=== PATIENT | male | born 1985 | race Caucasian/White ===

== ENCOUNTER 2017-03-03 15:46 | Inpatient (IN) | payer MEDICAID ==
[~2017-03-03] VITALS: Ht 177.8 cm; Wt 84.1 kg
[~2017-03-03 15:46] MED LIST: ETOMIDATE 2 MG/ML 10 ML VIAL IVP ONE; VECURONIUM BROMIDE 10 MG/VIAL IVP ONE
[2017-03-03] MEDS ORDERED: ACETAMINOPHEN 1000 MG/ISO-OSM 100 ML IV ONE (16:02)
[2017-03-03] MEDS ORDERED: PROPOFOL 1000 MG/ISO-OSM 100 ML IV PRN (16:17)
[2017-03-03 16:34] LABS: BASOPHILS % (AUTO) 0.5 % (0.0-2.0); EOSINOPHILS % (AUTO) 1.7 % (1.0-6.0); HEMATOCRIT 44.8 % (41-53); HEMOGLOBIN 14.7 g/dL (13.5-17.5); LYMPHOCYTES # (AUTO) 4.8 K/uL (1.0-4.8); LYMPHOCYTES % (AUTO) 31.9 % (22.0-44.0); MEAN CORPUSCULAR HEMOGLOBIN 29.7 pg (26.0-34.0); MEAN CORPUSCULAR HGB CONC 32.8 G/dL (31.0-37.0); MEAN CORPUSCULAR VOLUME 91 fL (80-100); MONOCYTES # (AUTO) 0.8 K/uL (0.1-1.0); MONOCYTES % (AUTO) 5.2 % (2.0-9.0); NEUTROPHILS # (AUTO) 9.1 K/uL (1.8-7.7); NEUTROPHILS % (AUTO) 60.7 % (40.0-70.0); PLATELET COUNT (AUTO) 250 K/uL (150-450); RED BLOOD CELL COUNT(AUTO) 4.95 MIL/uL (4.50-5.90); RED CELL DISTRIBUTION WIDTH 13.5 % (11.5-14.5)
[2017-03-03 16:46] LABS: APPEARANCE,URINE CLOUDY (CLEAR); GLUCOSE, URINE (UA) NEGATIVE (NEGATIVE); KETONES,URINE NEGATIVE (NEGATIVE); LEUKOCYTE ESTERASE ,URINE NEGATIVE (NEGATIVE); OCCULT BLOOD,URINE LARGE (NEGATIVE); PH,URINE 6.5 (5.0-8.0); PROTEIN,URINE SEE CONFIRM (NEGATIVE)
[2017-03-03 16:47] LABS: ANION GAP 26 mmol/L (8-16); CARBON DIOXIDE 14 mmol/L (22-29); CHLORIDE 103 mmol/L (98-107); CREATININE 1.98 mg/dL (0.60-1.30); GLOMERULAR FILTR. RATE CALC 30 mL/min (>60); POTASSIUM 3.1 mmol/L (3.5-5.1); SODIUM SERUM 143 mmol/L (136-145); UREA NITROGEN, BLOOD 14 mg/dL (7-18)
[2017-03-03 16:51] LABS: ALANINE AMINOTRANSFERASE 200 U/L (12-78); ALBUMIN 3.2 g/dL (3.4-5.0); ASPARTATE AMINOTRANSFERASE 151 U/L (15-37); BILIRUBIN,TOTAL 0.4 mg/dL (0.1-1.0)
[2017-03-03 16:52] LABS: ACETAMINOPHEN < 2 mcg/mL (10-30); SALICYLATE < 2.8 mg/dL (2.8-20.0)
[2017-03-03 16:54] LABS: B-TYPE NATRIURETIC PEPTIDE < 5 pg/mL (0-100)
[2017-03-03 17:03] LABS: AMMONIA 113 umol/L (11-32)
[2017-03-03 17:03] LABS: ADD UA MICROSCOPIC YES
[2017-03-03 17:04] LABS: TROPONIN I < 0.02 ng/mL (0.00-0.05)
[2017-03-03 17:06] LABS: SULFOSALICYLIC ACID,URINE 2+ (Negative)
[2017-03-03 17:07] LABS: WBC,URINE 0-2 /HPF (0-5)
[2017-03-03] MEDS ORDERED: AZITHROMYCIN 500 MG/NS 250 ML IV ONE (17:45)
[2017-03-03] MEDS ORDERED: PIPERACILLIN/TAZO 3.375 GM/D5W 50 ML IV ONE (17:45)
[2017-03-03] MEDS ORDERED: MIDAZOLAM HCL 100 MG in DEXTROSE 5%-WATER 180 ML IV PRN (17:55)
[2017-03-03 17:57] LABS: ABG A-A DIFF O2 543.8 mmHg (10-20.0); ABG BASE EXCESS -12.3 mmol/L (-2.0-3.0); ABG HCO3 15.6 mmol/L (22.0-26.0); ABG PCO2 38 mmHg (35-45); ABG PH 7.222 (7.35-7.450); TEMPERATURE, FAHRENHEIT, BG 97.5 FAHREN (96.0-98.6)
[2017-03-03 17:58] LABS: ALLEN TEST, BLOOD GAS POS
[2017-03-03] MEDS ORDERED: POTASSIUM CHL 20 MEQ/0.9% NS 1,000 ML IV ONE (18:00)
[2017-03-03] MEDS ORDERED: SODIUM CHLORIDE 0.9% 1,000 ML IV ONE ×3 (18:00→19:00)
[2017-03-03] MEDS ORDERED: LACTULOSE 20 GM/30 ML SOLUTION UDCUP PO ONE (18:45)
[2017-03-03 18:56] LABS: LACTIC ACID 5.4 mmol/L (0.4-2.0)
[2017-03-03] MEDS ORDERED: NOREPINEPHRINE 4 MG/D5%-WATER 250 ML IV PRN (19:00)
[2017-03-03 19:51] LABS: REFLEX LACTIC ACID? YES YES
[2017-03-03 20:30] VITALS: BP 128/63
[2017-03-03] MEDS ORDERED: ACETAMINOPHEN 325 MG TABLET PO PRN (21:45)
[2017-03-03] MEDS ORDERED: ONDANSETRON HCL 4 MG/2 ML VIAL IVP PRN (21:45)
[2017-03-03] MEDS ORDERED: 0.9% SODIUM CHLORIDE 10 ML SYRINGE IVP PRN (21:45)
[2017-03-03 22:00] VITALS: BP 119/83
[2017-03-03] MEDS: PROPOFOL 1000 MG/ISO-OSM 100 ML IV PRN (22:18)
[2017-03-04] VITALS (14 sets, daily range): BP systolic 94–125; BP diastolic 61–85
[2017-03-04] MEDS: PROPOFOL 1000 MG/ISO-OSM 100 ML IV PRN ×7 (00:30→23:29)
[2017-03-04] MEDS ORDERED: ACETAMINOPHEN 325 MG TABLET PO PRN ×2 (04:45→15:00)
[2017-03-04 05:29] LABS: CALCIUM, TOTAL 7.8 mg/dL (8.8-10.5); CREATININE 1.43 mg/dL (0.60-1.30)
[2017-03-04 05:50] LABS: HEMATOCRIT 46.8 % (41-53); HEMOGLOBIN 15.4 g/dL (13.5-17.5); MEAN CORPUSCULAR HEMOGLOBIN 29.8 pg (26.0-34.0); MEAN CORPUSCULAR VOLUME 90 fL (80-100); PLATELET COUNT (AUTO) 186 K/uL (150-450); RED BLOOD CELL COUNT(AUTO) 5.17 MIL/uL (4.50-5.90); RED CELL DISTRIBUTION WIDTH 13.7 % (11.5-14.5); WHITE BLOOD COUNT (AUTO) 17.3 K/uL (4.5-11.0)
[2017-03-04 09:57] LABS: BAND NEUTROPHILS % (MANUAL) 13 % (1-5); LYMPHOCYTES % (MANUAL) 6 % (22-44); TOTAL CELLS COUNTED 100
[2017-03-04] MEDS ORDERED: ONDANSETRON HCL 4 MG/2 ML VIAL IVP PRN (15:00)
[2017-03-04] MEDS ORDERED: BISACODYL 10 MG RECTAL RECTAL SUPPOSITORY PR PRN (15:00)
[2017-03-04] MEDS ORDERED: IPRATROPIUM BROMIDE 0.5 MG/2.5 ML NEB SOLUTION NEB PRN (15:00)
[2017-03-04] MEDS ORDERED: ZOLPIDEM TARTRATE 5 MG TABLET PO PRN (15:00)
[2017-03-04] MEDS ORDERED: MAGNESIUM HYDROXIDE SUSPENSION 30 ML UDCUP PO PRN (15:00)
[2017-03-04] MEDS ORDERED: ALBUTEROL SULFATE 2.5 MG/0.5 ML NEB SOLUTION NEB PRN (15:00)
[2017-03-04] MEDS ORDERED: DEXTROSE 5%-0.45% SODIUM CHL 1,000 ML IV ONE (15:15)
[2017-03-04 16:00] LABS: ALBUMIN 3.1 g/dL (3.4-5.0); BILIRUBIN,TOTAL 0.5 mg/dL (0.1-1.0)
[2017-03-04 16:02] LABS: BILIRUBIN,DIRECT 0.1 mg/dL (0.00-0.20)
[2017-03-04] MEDS: PIPERACILLIN/TAZO 3.375 GM/D5W 50 ML IV SCH ×2 (16:16→21:36)
[2017-03-04] MEDS: MIDAZOLAM HCL 100 MG in DEXTROSE 5%-WATER 180 ML IV PRN (16:17)
[2017-03-04] MEDS: HEPARIN SODIUM,PORCINE 5,000 UNITS/ML VIAL SQ SCH (16:28)
[2017-03-04] MEDS: VANCOMYCIN HCL 1.25 GM in DEXTROSE 5%-WATER 250 ML IV SCH (17:32)
[2017-03-04] MEDS ORDERED: VANCOMYCIN HCL 1 GM/D5% WATER 200 ML IV SCH (18:00)
[2017-03-04] MEDS: HYDROCODONE/ACETAMINOPHEN 5-325 MG TABLET PO PRN (22:17)
[2017-03-05] VITALS (10 sets, daily range): BP systolic 99–116; BP diastolic 58–86
[2017-03-05] MEDS: HEPARIN SODIUM,PORCINE 5,000 UNITS/ML VIAL SQ SCH ×4 (00:43→23:36)
[2017-03-05] MEDS: PROPOFOL 1000 MG/ISO-OSM 100 ML IV PRN ×7 (03:09→22:08)
[2017-03-05] MEDS: PIPERACILLIN/TAZO 3.375 GM/D5W 50 ML IV SCH ×4 (03:56→22:07)
[2017-03-05] MEDS: VANCOMYCIN HCL 1.25 GM in DEXTROSE 5%-WATER 250 ML IV SCH ×2 (05:08→18:40)
[2017-03-05] MEDS: MIDAZOLAM HCL 100 MG in DEXTROSE 5%-WATER 180 ML IV PRN ×2 (05:10→18:40)
[2017-03-05 06:03] LABS: ALANINE AMINOTRANSFERASE 123 U/L (12-78); ALBUMIN 2.5 g/dL (3.4-5.0); ANION GAP 12 mmol/L (8-16); ASPARTATE AMINOTRANSFERASE 52 U/L (15-37); BILIRUBIN,TOTAL 0.5 mg/dL (0.1-1.0); CALCIUM, TOTAL 7.7 mg/dL (8.8-10.5); CARBON DIOXIDE 22 mmol/L (22-29); CHLORIDE 109 mmol/L (98-107); CREATININE 1.33 mg/dL (0.60-1.30); GLOMERULAR FILTR. RATE CALC > 60 mL/min (>60); SODIUM SERUM 143 mmol/L (136-145); TOTAL PROTEIN, SERUM 6.3 g/dL (6.4-8.2); UREA NITROGEN, BLOOD 14 mg/dL (7-18)
[2017-03-05 06:17] LABS: BASOPHILS % (AUTO) 0.5 % (0.0-2.0); EOSINOPHILS % (AUTO) 5.2 % (1.0-6.0); HEMATOCRIT 41.3 % (41-53); HEMOGLOBIN 13.4 g/dL (13.5-17.5); LYMPHOCYTES # (AUTO) 2.1 K/uL (1.0-4.8); LYMPHOCYTES % (AUTO) 22.4 % (22.0-44.0); MEAN CORPUSCULAR HEMOGLOBIN 29.2 pg (26.0-34.0); MEAN CORPUSCULAR HGB CONC 32.4 G/dL (31.0-37.0); MEAN CORPUSCULAR VOLUME 90 fL (80-100); MONOCYTES # (AUTO) 0.6 K/uL (0.1-1.0); MONOCYTES % (AUTO) 6.6 % (2.0-9.0); NEUTROPHILS # (AUTO) 6.2 K/uL (1.8-7.7); NEUTROPHILS % (AUTO) 65.3 % (40.0-70.0); PLATELET COUNT (AUTO) 158 K/uL (150-450); RED BLOOD CELL COUNT(AUTO) 4.58 MIL/uL (4.50-5.90); RED CELL DISTRIBUTION WIDTH 14.2 % (11.5-14.5); WHITE BLOOD COUNT (AUTO) 9.4 K/uL (4.5-11.0)
[2017-03-05 08:54] LABS: TEMPERATURE, FAHRENHEIT, BG 98.6 FAHREN (96.0-98.6)
[2017-03-05 08:56] LABS: ABG A-A DIFF O2 87.5 mmHg (10-20.0); ABG BASE EXCESS -6.6 mmol/L (-2.0-3.0); ABG HCO3 20.2 mmol/L (22.0-26.0); ABG OXYHEMOGLOBIN 97.2 % (94.0-100.0); ABG PCO2 30 mmHg (35-45)
[2017-03-05 08:57] LABS: ALLEN TEST, BLOOD GAS Positive
[2017-03-05] MEDS: PANTOPRAZOLE SODIUM 40 MG/VIAL IVP SCH (09:25)
[2017-03-05] MEDS: HYDROCODONE/ACETAMINOPHEN 5-325 MG TABLET PO PRN (09:26)
[2017-03-05] MEDS ORDERED: LORazepam 2 MG/ML VIAL ONE (09:47)
[2017-03-05] MEDS ORDERED: SODIUM CHLORIDE 0.9% 250 ML IV ONE (10:05)
[2017-03-05] MEDS ORDERED: LORazepam 2 MG/ML VIAL IVP ONE (10:15)
[2017-03-05] MEDS: ChlordiazePOXIDE HCL 25 MG CAPSULE PO SCH ×3 (12:00→23:36)
[2017-03-06] VITALS: BP 105/75
[2017-03-06] MEDS: PROPOFOL 1000 MG/ISO-OSM 100 ML IV PRN ×7 (00:51→21:25)
[2017-03-06] MEDS: PIPERACILLIN/TAZO 3.375 GM/D5W 50 ML IV SCH ×4 (03:36→21:25)
[2017-03-06 04:00] VITALS: BP 109/75
[2017-03-06] MEDS: ChlordiazePOXIDE HCL 25 MG CAPSULE PO SCH ×4 (05:24→23:29)
[2017-03-06] MEDS: VANCOMYCIN HCL 1.25 GM in DEXTROSE 5%-WATER 250 ML IV SCH ×3 (05:24→21:25)
[2017-03-06 06:20] LABS: BASOPHILS % (AUTO) 0.5 % (0.0-2.0); EOSINOPHILS % (AUTO) 6.3 % (1.0-6.0); HEMATOCRIT 39.5 % (41-53); LYMPHOCYTES # (AUTO) 1.7 K/uL (1.0-4.8); LYMPHOCYTES % (AUTO) 23.6 % (22.0-44.0); MEAN CORPUSCULAR HEMOGLOBIN 29.7 pg (26.0-34.0); MEAN CORPUSCULAR HGB CONC 32.8 G/dL (31.0-37.0); MEAN CORPUSCULAR VOLUME 90 fL (80-100); MONOCYTES # (AUTO) 0.5 K/uL (0.1-1.0); MONOCYTES % (AUTO) 6.3 % (2.0-9.0); NEUTROPHILS # (AUTO) 4.6 K/uL (1.8-7.7); NEUTROPHILS % (AUTO) 63.3 % (40.0-70.0); PLATELET COUNT (AUTO) 182 K/uL (150-450); RED BLOOD CELL COUNT(AUTO) 4.36 MIL/uL (4.50-5.90); RED CELL DISTRIBUTION WIDTH 14.5 % (11.5-14.5); WHITE BLOOD COUNT (AUTO) 7.3 K/uL (4.5-11.0)
[2017-03-06 06:56] LABS: ALANINE AMINOTRANSFERASE 86 U/L (12-78); ALBUMIN 2.4 g/dL (3.4-5.0); ANION GAP 3 mmol/L (8-16); ASPARTATE AMINOTRANSFERASE 40 U/L (15-37); BILIRUBIN,TOTAL 0.5 mg/dL (0.1-1.0); CALCIUM, TOTAL 7.8 mg/dL (8.8-10.5); CARBON DIOXIDE 24 mmol/L (22-29); CHLORIDE 106 mmol/L (98-107); CREATININE 1.05 mg/dL (0.60-1.30); GLOMERULAR FILTR. RATE CALC > 60 mL/min (>60); SODIUM SERUM 133 mmol/L (136-145); TOTAL PROTEIN, SERUM 6.1 g/dL (6.4-8.2); UREA NITROGEN, BLOOD 7 mg/dL (7-18)
[2017-03-06 08:00] VITALS: BP 112/74
[2017-03-06] MEDS: PANTOPRAZOLE SODIUM 40 MG/VIAL IVP SCH (08:26)
[2017-03-06] MEDS: HEPARIN SODIUM,PORCINE 5,000 UNITS/ML VIAL SQ SCH ×3 (08:27→23:29)
[2017-03-06 11:13] LABS: HEPATITIS Bs ANTIGEN SCREEN P Negative (Negative); HEPATITIS C AB SCREEN <0.1 s/co ratio (0.0-0.9)
[2017-03-06] MEDS: MIDAZOLAM HCL 100 MG in DEXTROSE 5%-WATER 180 ML IV PRN ×2 (11:37→23:32)
[2017-03-06 12:00] VITALS: BP 104/67
[2017-03-06 16:00] VITALS: BP 105/70
[2017-03-06 20:00] VITALS: BP 116/81
[2017-03-06] MEDS ORDERED: POTASSIUM CHLORIDE 20 MEQ ER TABLET PO PRN ×2 (21:00)
[2017-03-06] MEDS ORDERED: POTASSIUM CHL 10 MEQ/WATER 50 ML IV PRN (21:00)
[2017-03-06] MEDS ORDERED: POTASSIUM CHLORIDE 10% 40 MEQ/30 ML LIQUID UDCUP GT PRN (21:00)
[2017-03-06] MEDS: POTASSIUM CHLORIDE 10% 40 MEQ/30 ML LIQUID UDCUP GT PRN (21:24)
[2017-03-06] MEDS ORDERED: PANTOPRAZOLE SODIUM 40 MG/VIAL IVP ONE (23:45)
[2017-03-07] VITALS (8 sets, daily range): BP systolic 99–131; BP diastolic 58–78
[2017-03-07] MEDS: PROPOFOL 1000 MG/ISO-OSM 100 ML IV PRN ×6 (01:13→22:17)
[2017-03-07] MEDS: PIPERACILLIN/TAZO 3.375 GM/D5W 50 ML IV SCH ×4 (03:28→22:25)
[2017-03-07] MEDS: POTASSIUM CHLORIDE 10% 40 MEQ/30 ML LIQUID UDCUP GT PRN (03:28)
[2017-03-07 05:24] LABS: BASOPHILS # (AUTO) 0.02 K/uL (0.00-0.20); BASOPHILS % (AUTO) 0.2 % (0.0-2.0); EOSINOPHILS % (AUTO) 5.77 % (1.0-6.0); HEMATOCRIT 38.6 % (41-53); LYMPHOCYTES # (AUTO) 1.2 K/uL (1.0-4.8); LYMPHOCYTES % (AUTO) 16.7 % (22.0-44.0); MEAN CORPUSCULAR HEMOGLOBIN 30.2 pg (26.0-34.0); MEAN CORPUSCULAR HGB CONC 33.5 G/dL (31.0-37.0); MEAN CORPUSCULAR VOLUME 90 fL (80-100); MONOCYTES # (AUTO) 0.5 K/uL (0.1-1.0); MONOCYTES % (AUTO) 7.4 % (2.0-9.0); NEUTROPHILS # (AUTO) 4.9 K/uL (1.8-7.7); NEUTROPHILS % (AUTO) 69.9 % (40.0-70.0); PLATELET COUNT (AUTO) 213 K/uL (150-450); RED BLOOD CELL COUNT(AUTO) 4.29 MIL/uL (4.50-5.90); RED CELL DISTRIBUTION WIDTH 14.2 % (11.5-14.5); WHITE BLOOD COUNT (AUTO) 6.9 K/uL (4.5-11.0)
[2017-03-07] MEDS: ChlordiazePOXIDE HCL 25 MG CAPSULE PO SCH ×4 (05:48→23:48)
[2017-03-07] MEDS: VANCOMYCIN HCL 1.25 GM in DEXTROSE 5%-WATER 250 ML IV SCH ×3 (05:48→22:25)
[2017-03-07 05:49] LABS: ALANINE AMINOTRANSFERASE 79 U/L (12-78); ALBUMIN 2.5 g/dL (3.4-5.0); ANION GAP 10 mmol/L (8-16); ASPARTATE AMINOTRANSFERASE 44 U/L (15-37); BILIRUBIN,TOTAL 0.5 mg/dL (0.1-1.0); CALCIUM, TOTAL 7.9 mg/dL (8.8-10.5); CARBON DIOXIDE 24 mmol/L (22-29); CHLORIDE 109 mmol/L (98-107); CREATININE 0.89 mg/dL (0.60-1.30); GLOMERULAR FILTR. RATE CALC > 60 mL/min (>60); POTASSIUM 3.9 mmol/L (3.5-5.1); SODIUM SERUM 143 mmol/L (136-145); TOTAL PROTEIN, SERUM 6.4 g/dL (6.4-8.2); UREA NITROGEN, BLOOD 6 mg/dL (7-18)
[2017-03-07] MEDS: PANTOPRAZOLE SODIUM 40 MG/VIAL IVP SCH (09:19)
[2017-03-07] MEDS: HEPARIN SODIUM,PORCINE 5,000 UNITS/ML VIAL SQ SCH ×3 (09:19→23:48)
[2017-03-07] MEDS: MIDAZOLAM HCL 100 MG in DEXTROSE 5%-WATER 180 ML IV PRN (10:29)
[2017-03-07] MEDS ORDERED: LORazepam 2 MG/ML VIAL IM PRN (11:00)
[2017-03-07] MEDS: MORPHINE SULFATE 2 MG/ML SYRINGE IVP PRN (13:20)
[2017-03-07] MEDS: LORazepam 2 MG/ML VIAL IVP PRN (13:20)
[2017-03-07] MEDS ORDERED: 0.9% SODIUM CHLORIDE 10 ML SYRINGE IVP PRN (15:15)
[2017-03-08] VITALS (9 sets, daily range): BP systolic 99–121; BP diastolic 55–84
[2017-03-08] MEDS: PROPOFOL 1000 MG/ISO-OSM 100 ML IV PRN ×6 (00:43→22:31)
[2017-03-08] MEDS ORDERED: SODIUM CHLORIDE 0.9% 250 ML IV ONE ×2 (01:48→16:18)
[2017-03-08] MEDS: MIDAZOLAM HCL 100 MG in DEXTROSE 5%-WATER 180 ML IV PRN ×2 (02:02→20:21)
[2017-03-08] MEDS: LORazepam 2 MG/ML VIAL IVP PRN ×3 (02:32→16:00)
[2017-03-08] MEDS: PIPERACILLIN/TAZO 3.375 GM/D5W 50 ML IV SCH ×4 (03:52→22:30)
[2017-03-08] MEDS: VANCOMYCIN HCL 1.25 GM in DEXTROSE 5%-WATER 250 ML IV SCH ×3 (05:27→22:30)
[2017-03-08] MEDS ORDERED: SODIUM CHLORIDE 0.9% 500 ML IV ONE (05:32)
[2017-03-08 05:45] LABS: BASOPHILS # (AUTO) 0.03 K/uL (0.00-0.20); BASOPHILS % (AUTO) 0.5 % (0.0-2.0); EOSINOPHILS # (AUTO) 0.46 K/uL (0.00-0.70); EOSINOPHILS % (AUTO) 6.96 % (1.0-6.0); HEMATOCRIT 36.5 % (41-53); HEMOGLOBIN 12.5 g/dL (13.5-17.5); LYMPHOCYTES # (AUTO) 1.3 K/uL (1.0-4.8); MEAN CORPUSCULAR HEMOGLOBIN 30.4 pg (26.0-34.0); MEAN CORPUSCULAR HGB CONC 34.4 G/dL (31.0-37.0); MEAN CORPUSCULAR VOLUME 88 fL (80-100); MONOCYTES # (AUTO) 0.6 K/uL (0.1-1.0); MONOCYTES % (AUTO) 8.9 % (2.0-9.0); NEUTROPHILS # (AUTO) 4.3 K/uL (1.8-7.7); NEUTROPHILS % (AUTO) 64.7 % (40.0-70.0); PLATELET COUNT (AUTO) 233 K/uL (150-450); RED BLOOD CELL COUNT(AUTO) 4.12 MIL/uL (4.50-5.90); RED CELL DISTRIBUTION WIDTH 14.2 % (11.5-14.5); WHITE BLOOD COUNT (AUTO) 6.7 K/uL (4.5-11.0)
[2017-03-08 05:46] LABS: ALANINE AMINOTRANSFERASE 68 U/L (12-78); ALBUMIN 2.4 g/dL (3.4-5.0); ANION GAP 9 mmol/L (8-16); ASPARTATE AMINOTRANSFERASE 44 U/L (15-37); BILIRUBIN,TOTAL 0.4 mg/dL (0.1-1.0); CALCIUM, TOTAL 7.9 mg/dL (8.8-10.5); CARBON DIOXIDE 27 mmol/L (22-29); CHLORIDE 109 mmol/L (98-107); CREATININE 0.88 mg/dL (0.60-1.30); GLOMERULAR FILTR. RATE CALC > 60 mL/min (>60); POTASSIUM 3.3 mmol/L (3.5-5.1); SODIUM SERUM 145 mmol/L (136-145); TOTAL PROTEIN, SERUM 6.3 g/dL (6.4-8.2); UREA NITROGEN, BLOOD 6 mg/dL (7-18)
[2017-03-08] MEDS: ChlordiazePOXIDE HCL 25 MG CAPSULE PO SCH ×3 (05:51→18:11)
[2017-03-08] MEDS: PANTOPRAZOLE SODIUM 40 MG/VIAL IVP SCH (08:09)
[2017-03-08] MEDS: HEPARIN SODIUM,PORCINE 5,000 UNITS/ML VIAL SQ SCH ×2 (08:09→16:12)
[2017-03-08] MEDS: MORPHINE SULFATE 2 MG/ML SYRINGE IVP PRN ×2 (08:09→16:00)
[2017-03-08] MEDS: POTASSIUM CHL 10 MEQ/WATER 50 ML IV PRN ×3 (10:21→12:33)
[2017-03-09] VITALS (10 sets, daily range): BP systolic 106–122; BP diastolic 63–84
[2017-03-09] MEDS ORDERED: SODIUM CHLORIDE 0.9% 250 ML IV ONE (00:51)
[2017-03-09] MEDS: ChlordiazePOXIDE HCL 25 MG CAPSULE PO SCH ×4 (00:57→17:26)
[2017-03-09] MEDS: HEPARIN SODIUM,PORCINE 5,000 UNITS/ML VIAL SQ SCH ×3 (00:57→15:10)
[2017-03-09] MEDS: PIPERACILLIN/TAZO 3.375 GM/D5W 50 ML IV SCH ×4 (03:01→22:03)
[2017-03-09] MEDS: PROPOFOL 1000 MG/ISO-OSM 100 ML IV PRN ×5 (03:02→21:06)
[2017-03-09 05:36] LABS: BASOPHILS % (AUTO) 0.3 % (0.0-2.0); EOSINOPHILS % (AUTO) 5.5 % (1.0-6.0); HEMATOCRIT 38.2 % (41-53); HEMOGLOBIN 12.5 g/dL (13.5-17.5); LYMPHOCYTES # (AUTO) 1.5 K/uL (1.0-4.8); LYMPHOCYTES % (AUTO) 16.8 % (22.0-44.0); MEAN CORPUSCULAR HEMOGLOBIN 29.6 pg (26.0-34.0); MEAN CORPUSCULAR HGB CONC 32.8 G/dL (31.0-37.0); MEAN CORPUSCULAR VOLUME 90 fL (80-100); MONOCYTES # (AUTO) 0.8 K/uL (0.1-1.0); MONOCYTES % (AUTO) 9.3 % (2.0-9.0); NEUTROPHILS % (AUTO) 68.1 % (40.0-70.0); PLATELET COUNT (AUTO) 272 K/uL (150-450); RED BLOOD CELL COUNT(AUTO) 4.24 MIL/uL (4.50-5.90); RED CELL DISTRIBUTION WIDTH 14.3 % (11.5-14.5); WHITE BLOOD COUNT (AUTO) 8.8 K/uL (4.5-11.0)
[2017-03-09 05:49] LABS: ALANINE AMINOTRANSFERASE 69 U/L (12-78); ALBUMIN 2.5 g/dL (3.4-5.0); ANION GAP 9 mmol/L (8-16); ASPARTATE AMINOTRANSFERASE 44 U/L (15-37); BILIRUBIN,TOTAL 0.4 mg/dL (0.1-1.0); CALCIUM, TOTAL 8.1 mg/dL (8.8-10.5); CARBON DIOXIDE 27 mmol/L (22-29); CHLORIDE 109 mmol/L (98-107); CREATININE 0.98 mg/dL (0.60-1.30); GLOMERULAR FILTR. RATE CALC > 60 mL/min (>60); POTASSIUM 3.1 mmol/L (3.5-5.1); SODIUM SERUM 145 mmol/L (136-145); TOTAL PROTEIN, SERUM 6.4 g/dL (6.4-8.2); UREA NITROGEN, BLOOD 6 mg/dL (7-18)
[2017-03-09] MEDS: VANCOMYCIN HCL 1.25 GM in DEXTROSE 5%-WATER 250 ML IV SCH ×3 (05:54→22:03)
[2017-03-09 07:39] LABS: PHOSPHORUS 3.9 mg/dL (2.5-4.9)
[2017-03-09] MEDS: PANTOPRAZOLE SODIUM 40 MG/VIAL IVP SCH (08:16)
[2017-03-09] MEDS: POTASSIUM CHLORIDE 10% 40 MEQ/30 ML LIQUID UDCUP GT PRN (08:16)
[2017-03-09] MEDS: MIDAZOLAM HCL 100 MG in DEXTROSE 5%-WATER 180 ML IV PRN ×3 (08:19→22:07)
[2017-03-09] MEDS: METOCLOPRAMIDE HCL 5 MG/ML 2 ML VIAL IVP SCH (17:26)
[2017-03-09] MEDS: LORazepam 2 MG/ML VIAL IVP PRN (17:27)
[2017-03-10] VITALS (8 sets, daily range): BP systolic 104–121; BP diastolic 61–86
[2017-03-10] MEDS: METOCLOPRAMIDE HCL 5 MG/ML 2 ML VIAL IVP SCH ×5 (00:29→23:25)
[2017-03-10] MEDS: ChlordiazePOXIDE HCL 25 MG CAPSULE PO SCH ×5 (00:29→23:25)
[2017-03-10] MEDS: HEPARIN SODIUM,PORCINE 5,000 UNITS/ML VIAL SQ SCH ×4 (00:30→23:25)
[2017-03-10] MEDS: PIPERACILLIN/TAZO 3.375 GM/D5W 50 ML IV SCH ×4 (04:08→22:25)
[2017-03-10] MEDS: VANCOMYCIN HCL 1.25 GM in DEXTROSE 5%-WATER 250 ML IV SCH (06:07)
[2017-03-10] MEDS: PROPOFOL 1000 MG/ISO-OSM 100 ML IV PRN ×4 (06:11→20:35)
[2017-03-10] MEDS ORDERED: SODIUM CHLORIDE 0.9% 250 ML IV ONE ×2 (06:16→23:39)
[2017-03-10 06:21] LABS: BASOPHILS % (AUTO) 0.2 % (0.0-2.0); EOSINOPHILS % (AUTO) 5.2 % (1.0-6.0); HEMATOCRIT 39.4 % (41-53); HEMOGLOBIN 12.8 g/dL (13.5-17.5); LYMPHOCYTES # (AUTO) 1.4 K/uL (1.0-4.8); LYMPHOCYTES % (AUTO) 12.8 % (22.0-44.0); MEAN CORPUSCULAR HEMOGLOBIN 29.3 pg (26.0-34.0); MEAN CORPUSCULAR HGB CONC 32.4 G/dL (31.0-37.0); MEAN CORPUSCULAR VOLUME 90 fL (80-100); MONOCYTES % (AUTO) 8.8 % (2.0-9.0); NEUTROPHILS # (AUTO) 8.1 K/uL (1.8-7.7); PLATELET COUNT (AUTO) 306 K/uL (150-450); RED BLOOD CELL COUNT(AUTO) 4.36 MIL/uL (4.50-5.90); RED CELL DISTRIBUTION WIDTH 14.3 % (11.5-14.5); WHITE BLOOD COUNT (AUTO) 11.1 K/uL (4.5-11.0)
[2017-03-10 06:31] LABS: ALBUMIN 2.5 g/dL (3.4-5.0); BILIRUBIN,TOTAL 0.3 mg/dL (0.1-1.0); CALCIUM, TOTAL 8.3 mg/dL (8.8-10.5); CREATININE 1.81 mg/dL (0.60-1.30); POTASSIUM 3.6 mmol/L (3.5-5.1); TOTAL PROTEIN, SERUM 6.7 g/dL (6.4-8.2)
[2017-03-10] MEDS: PANTOPRAZOLE SODIUM 40 MG/VIAL IVP SCH (08:10)
[2017-03-10 08:26] LABS: ABG BASE EXCESS -0.1 mmol/L (-2.0-3.0); ABG HCO3 24.8 mmol/L (22.0-26.0); ABG OXYHEMOGLOBIN 96.5 % (94.0-100.0); ABG PCO2 39 mmHg (35-45); ABG PH 7.453 (7.350-7.450); TEMPERATURE, FAHRENHEIT, BG 98.6 FAHREN (96.0-98.6)
[2017-03-10 08:27] LABS: ABG A-A DIFF O2 76.8 mmHg (10-20.0)
[2017-03-10] MEDS: MIDAZOLAM HCL 100 MG in DEXTROSE 5%-WATER 180 ML IV PRN (11:55)
[2017-03-10] MEDS ORDERED: FentaNYL CITRATE PF 500 MCG in DEXTROSE 5%-WATER 90 ML IV PRN (16:59)
[2017-03-10] MEDS ORDERED: VANCOMYCIN HCL 750 MG in DEXTROSE 5%-WATER 150 ML IV SCH (20:00)
[2017-03-10] MEDS: LACTULOSE 20 GM/30 ML SOLUTION UDCUP PO PRN (20:33)
[2017-03-11] VITALS: BP 122/76
[2017-03-11] MEDS: PROPOFOL 1000 MG/ISO-OSM 100 ML IV PRN ×5 (00:49→23:00)
[2017-03-11] MEDS: PIPERACILLIN/TAZO 3.375 GM/D5W 50 ML IV SCH ×4 (03:53→22:03)
[2017-03-11] MEDS: LACTULOSE 20 GM/30 ML SOLUTION UDCUP PO PRN (03:53)
[2017-03-11 04:00] VITALS: BP 138/98
[2017-03-11] MEDS: METOCLOPRAMIDE HCL 5 MG/ML 2 ML VIAL IVP SCH ×4 (05:14→23:52)
[2017-03-11] MEDS: ChlordiazePOXIDE HCL 25 MG CAPSULE PO SCH ×4 (05:14→23:52)
[2017-03-11 05:35] LABS: BASOPHILS % (AUTO) 0.2 % (0.0-2.0); EOSINOPHILS % (AUTO) 5.1 % (1.0-6.0); HEMOGLOBIN 13.3 g/dL (13.5-17.5); MEAN CORPUSCULAR HEMOGLOBIN 30.3 pg (26.0-34.0); MEAN CORPUSCULAR HGB CONC 33.2 G/dL (31.0-37.0); MEAN CORPUSCULAR VOLUME 91 fL (80-100); MONOCYTES # (AUTO) 1.2 K/uL (0.1-1.0); MONOCYTES % (AUTO) 10.7 % (2.0-9.0); NEUTROPHILS # (AUTO) 7.2 K/uL (1.8-7.7); PLATELET COUNT (AUTO) 327 K/uL (150-450); RED BLOOD CELL COUNT(AUTO) 4.39 MIL/uL (4.50-5.90); RED CELL DISTRIBUTION WIDTH 14.7 % (11.5-14.5)
[2017-03-11 06:12] LABS: ALBUMIN 2.6 g/dL (3.4-5.0); BILIRUBIN,TOTAL 0.4 mg/dL (0.1-1.0); CALCIUM, TOTAL 7.9 mg/dL (8.8-10.5); CREATININE 2.35 mg/dL (0.60-1.30); POTASSIUM 3.5 mmol/L (3.5-5.1); TOTAL PROTEIN, SERUM 6.8 g/dL (6.4-8.2)
[2017-03-11 08:00] VITALS: BP 115/76
[2017-03-11] MEDS: HEPARIN SODIUM,PORCINE 5,000 UNITS/ML VIAL SQ SCH ×2 (08:00→16:00)
[2017-03-11] MEDS: PANTOPRAZOLE SODIUM 40 MG/VIAL IVP SCH (08:33)
[2017-03-11 09:14] LABS: TEMPERATURE, FAHRENHEIT, BG 98.4 FAHREN (96.0-98.6)
[2017-03-11 09:19] LABS: ABG A-A DIFF O2 82.2 mmHg (10-20.0); ABG BASE EXCESS -4.2 mmol/L (-2.0-3.0); ABG HCO3 21.8 mmol/L (22.0-26.0); ABG OXYHEMOGLOBIN 95.9 % (94.0-100.0); ABG PCO2 30 mmHg (35-45); ABG PH 7.436 (7.350-7.450)
[2017-03-11 09:20] LABS: ALLEN TEST, BLOOD GAS Positive
[2017-03-11] MEDS ORDERED: VANCOMYCIN HCL 1 GM/D5% WATER 200 ML IV PRN (09:45)
[2017-03-11 12:00] VITALS: BP 108/59
[2017-03-11] MEDS: LACTULOSE 20 GM/30 ML SOLUTION UDCUP PO SCH ×2 (12:00→20:00)
[2017-03-11] MEDS: HALOPERIDOL LACTATE 5 MG/ML VIAL IVP PRN ×2 (15:00→22:26)
[2017-03-11] MEDS: SODIUM CHLORIDE 0.45% 1,000 ML IV SCH (15:00)
[2017-03-11 16:00] VITALS: BP 123/89
[2017-03-11] MEDS: MORPHINE SULFATE 2 MG/ML SYRINGE IVP PRN (18:00)
[2017-03-11] MEDS: LORazepam 2 MG/ML VIAL IVP PRN (19:32)
[2017-03-11 20:00] VITALS: BP 149/96
[2017-03-12] VITALS (12 sets, daily range): BP systolic 110–150; BP diastolic 58–276
[2017-03-12] MEDS: HEPARIN SODIUM,PORCINE 5,000 UNITS/ML VIAL SQ SCH ×4 (00:10→23:21)
[2017-03-12] MEDS: MORPHINE SULFATE 2 MG/ML SYRINGE IVP PRN ×3 (02:34→22:25)
[2017-03-12] MEDS: PIPERACILLIN/TAZO 3.375 GM/D5W 50 ML IV SCH ×4 (03:47→21:53)
[2017-03-12] MEDS: LACTULOSE 20 GM/30 ML SOLUTION UDCUP PO SCH ×3 (03:48→20:00)
[2017-03-12] MEDS: METOCLOPRAMIDE HCL 5 MG/ML 2 ML VIAL IVP SCH ×4 (05:10→23:10)
[2017-03-12] MEDS: ChlordiazePOXIDE HCL 25 MG CAPSULE PO SCH ×4 (05:11→23:10)
[2017-03-12 06:32] LABS: CALCIUM, TOTAL 8.3 mg/dL (8.8-10.5); CREATININE 2.18 mg/dL (0.60-1.30); POTASSIUM 3.4 mmol/L (3.5-5.1)
[2017-03-12] MEDS: POTASSIUM CHL 10 MEQ/WATER 50 ML IV PRN (06:52)
[2017-03-12] MEDS: PANTOPRAZOLE SODIUM 40 MG/VIAL IVP SCH (09:26)
[2017-03-12] MEDS ORDERED: VANCOMYCIN HCL 1 GM/D5% WATER 200 ML IV ONE (09:30)
[2017-03-12] MEDS: SODIUM CHLORIDE 0.45% 1,000 ML IV SCH (12:28)
[2017-03-12 13:11] LABS: ABG A-A DIFF O2 82.9 mmHg (10-20.0); ABG BASE EXCESS -1.4 mmol/L (-2.0-3.0); ABG HCO3 23.5 mmol/L (22.0-26.0); ABG OXYHEMOGLOBIN 94.6 % (94.0-100.0); ABG PCO2 39 mmHg (35-45); ABG PH 7.398 (7.350-7.450); TEMPERATURE, FAHRENHEIT, BG 99.3 FAHREN (96.0-98.6)
[2017-03-12 14:54] LABS: ABG A-A DIFF O2 93.7 mmHg (10-20.0); ABG BASE EXCESS -1.5 mmol/L (-2.0-3.0); ABG HCO3 23.2 mmol/L (22.0-26.0); ABG OXYHEMOGLOBIN 93.8 % (94.0-100.0); ABG PCO2 43 mmHg (35-45); ABG PH 7.365 (7.350-7.450); TEMPERATURE, FAHRENHEIT, BG 99.8 FAHREN (96.0-98.6)
[2017-03-12 14:55] LABS: ALLEN TEST, BLOOD GAS Positive
[2017-03-12 17:03] LABS: ANION GAP 7 mmol/L (8-16); CALCIUM, TOTAL 8.5 mg/dL (8.8-10.5); CARBON DIOXIDE 27 mmol/L (22-29); CHLORIDE 113 mmol/L (98-107); CREATININE 2.26 mg/dL (0.60-1.30); GLOMERULAR FILTR. RATE CALC 34 mL/min (>60); POTASSIUM 3.7 mmol/L (3.5-5.1); SODIUM SERUM 147 mmol/L (136-145); UREA NITROGEN, BLOOD 18 mg/dL (7-18)
[2017-03-12 17:27] LABS: CREATINE KINASE, TOTAL 249 U/L (39-308); PHOSPHORUS 5.1 mg/dL (2.5-4.9)
[2017-03-12 17:32] LABS: CREATINE KINASE MB < 0.5 ng/mL (0-5)
[2017-03-12] MEDS: DEXTROSE 5%-0.45% SODIUM CHL 1,000 ML IV SCH (18:25)
[2017-03-12] MEDS: HALOPERIDOL LACTATE 5 MG/ML VIAL IVP PRN (20:00)
[2017-03-13] VITALS (9 sets, daily range): BP systolic 130–165; BP diastolic 66–104
[2017-03-13] MEDS: LACTULOSE 20 GM/30 ML SOLUTION UDCUP PO SCH ×3 (03:21→21:20)
[2017-03-13] MEDS: PIPERACILLIN/TAZO 3.375 GM/D5W 50 ML IV SCH ×4 (03:23→21:28)
[2017-03-13] MEDS: MORPHINE SULFATE 2 MG/ML SYRINGE IVP PRN (04:36)
[2017-03-13] MEDS: METOCLOPRAMIDE HCL 5 MG/ML 2 ML VIAL IVP SCH ×4 (05:18→23:35)
[2017-03-13] MEDS: ChlordiazePOXIDE HCL 25 MG CAPSULE PO SCH ×4 (05:18→23:34)
[2017-03-13 06:05] LABS: BASOPHILS % (AUTO) 0.4 % (0.0-2.0); EOSINOPHILS % (AUTO) 4.5 % (1.0-6.0); HEMOGLOBIN 12.4 g/dL (13.5-17.5); LYMPHOCYTES # (AUTO) 1.8 K/uL (1.0-4.8); LYMPHOCYTES % (AUTO) 16.4 % (22.0-44.0); MEAN CORPUSCULAR HEMOGLOBIN 29.6 pg (26.0-34.0); MEAN CORPUSCULAR HGB CONC 32.7 G/dL (31.0-37.0); MEAN CORPUSCULAR VOLUME 91 fL (80-100); MONOCYTES # (AUTO) 0.9 K/uL (0.1-1.0); MONOCYTES % (AUTO) 8.5 % (2.0-9.0); NEUTROPHILS # (AUTO) 7.7 K/uL (1.8-7.7); NEUTROPHILS % (AUTO) 70.2 % (40.0-70.0); PLATELET COUNT (AUTO) 361 K/uL (150-450); RED CELL DISTRIBUTION WIDTH 14.3 % (11.5-14.5); WHITE BLOOD COUNT (AUTO) 10.9 K/uL (4.5-11.0)
[2017-03-13 06:07] LABS: CALCIUM, TOTAL 8.6 mg/dL (8.8-10.5); CREATININE 2.18 mg/dL (0.60-1.30); MAGNESIUM 2.2 mg/dL (1.80-2.40); PHOSPHORUS 4.7 mg/dL (2.5-4.9); POTASSIUM 3.6 mmol/L (3.5-5.1)
[2017-03-13] MEDS: DEXTROSE 5%-0.45% SODIUM CHL 1,000 ML IV SCH (06:44)
[2017-03-13] MEDS: HEPARIN SODIUM,PORCINE 5,000 UNITS/ML VIAL SQ SCH ×3 (09:50→23:35)
[2017-03-13] MEDS: PANTOPRAZOLE SODIUM 40 MG/VIAL IVP SCH (09:50)
[2017-03-13] MEDS ORDERED: VANCOMYCIN HCL 1 GM/D5% WATER 200 ML IV ONE (10:00)
[2017-03-13] MEDS: HALOPERIDOL LACTATE 5 MG/ML VIAL IVP PRN ×2 (14:26→23:35)
[2017-03-13 14:51] LABS: CALCIUM, TOTAL 8.4 mg/dL (8.8-10.5); CREATININE 2.1 mg/dL (0.60-1.30); POTASSIUM 3.7 mmol/L (3.5-5.1)
[2017-03-13 14:55] LABS: MAGNESIUM 2.1 mg/dL (1.80-2.40); PHOSPHORUS 3.9 mg/dL (2.5-4.9)
[2017-03-13] MEDS: DEXTROSE 5%-WATER 1,000 ML IV SCH (16:15)
[2017-03-14] MEDS: PIPERACILLIN/TAZO 3.375 GM/D5W 50 ML IV SCH (03:55)
[2017-03-14] MEDS: LACTULOSE 20 GM/30 ML SOLUTION UDCUP PO SCH ×3 (03:56→20:15)
[2017-03-14 04:36] VITALS: BP 114/72
[2017-03-14] MEDS: METOCLOPRAMIDE HCL 5 MG/ML 2 ML VIAL IVP SCH ×3 (05:51→18:04)
[2017-03-14] MEDS: ChlordiazePOXIDE HCL 25 MG CAPSULE PO SCH ×3 (05:51→18:00)
[2017-03-14 06:49] LABS: CALCIUM, TOTAL 8.6 mg/dL (8.8-10.5); CREATININE 2.06 mg/dL (0.60-1.30); MAGNESIUM 2.1 mg/dL (1.80-2.40); PHOSPHORUS 4.3 mg/dL (2.5-4.9); POTASSIUM 3.6 mmol/L (3.5-5.1)
[2017-03-14 07:19] VITALS: BP 118/75
[2017-03-14] MEDS: PANTOPRAZOLE SODIUM 40 MG/VIAL IVP SCH (10:56)
[2017-03-14] MEDS: HEPARIN SODIUM,PORCINE 5,000 UNITS/ML VIAL SQ SCH ×2 (10:57→18:00)
[2017-03-14] MEDS ORDERED: VANCOMYCIN HCL 1 GM/D5% WATER 200 ML IV ONE (11:00)
[2017-03-14 11:46] VITALS: BP 126/78
[2017-03-14 15:48] VITALS: BP 124/87
[2017-03-14] MEDS: DEXTROSE 5%-WATER 1,000 ML IV SCH (15:54)
[2017-03-14 19:36] VITALS: BP 127/76
[2017-03-14 23:35] VITALS: BP 113/68
[2017-03-15] MEDS: HEPARIN SODIUM,PORCINE 5,000 UNITS/ML VIAL SQ SCH ×3 (00:57→15:43)
[2017-03-15] MEDS: METOCLOPRAMIDE HCL 5 MG/ML 2 ML VIAL IVP SCH ×4 (00:58→18:21)
[2017-03-15] MEDS: LACTULOSE 20 GM/30 ML SOLUTION UDCUP PO SCH ×3 (04:00→20:25)
[2017-03-15 04:53] VITALS: BP 112/70
[2017-03-15] MEDS: ChlordiazePOXIDE HCL 25 MG CAPSULE PO SCH ×4 (05:47→18:00)
[2017-03-15 07:36] VITALS: BP 123/68
[2017-03-15] MEDS: PANTOPRAZOLE SODIUM 40 MG/VIAL IVP SCH (08:13)
[2017-03-15 08:15] LABS: CALCIUM, TOTAL 8.7 mg/dL (8.8-10.5); CREATININE 1.86 mg/dL (0.60-1.30); MAGNESIUM 2.2 mg/dL (1.80-2.40); PHOSPHORUS 4.2 mg/dL (2.5-4.9); POTASSIUM 3.7 mmol/L (3.5-5.1)
[2017-03-15 11:51] VITALS: BP 119/71
[2017-03-15 17:04] VITALS: BP 110/68
[2017-03-15 20:10] VITALS: BP 114/76
[2017-03-15 23:59] VITALS: BP 115/73
[2017-03-16] MEDS: HEPARIN SODIUM,PORCINE 5,000 UNITS/ML VIAL SQ SCH ×3 (00:18→15:59)
[2017-03-16] MEDS: METOCLOPRAMIDE HCL 5 MG/ML 2 ML VIAL IVP SCH ×4 (00:18→17:13)
[2017-03-16] MEDS: LORazepam 2 MG/ML VIAL IVP PRN (03:15)
[2017-03-16 05:24] VITALS: BP 119/75
[2017-03-16] MEDS: LACTULOSE 20 GM/30 ML SOLUTION UDCUP PO SCH ×2 (05:29→12:19)
[2017-03-16] MEDS: ChlordiazePOXIDE HCL 25 MG CAPSULE PO SCH ×4 (05:29→17:13)
[2017-03-16 07:29] LABS: CALCIUM, TOTAL 8.7 mg/dL (8.8-10.5); CREATININE 1.87 mg/dL (0.60-1.30); MAGNESIUM 2.2 mg/dL (1.80-2.40); PHOSPHORUS 4.3 mg/dL (2.5-4.9); POTASSIUM 3.4 mmol/L (3.5-5.1)
[2017-03-16 07:58] VITALS: BP 126/84
[2017-03-16] MEDS ORDERED: POTASSIUM CHLORIDE 10 MEQ ER TABLET PO ONE (08:15)
[2017-03-16] MEDS: PANTOPRAZOLE SODIUM 40 MG/VIAL IVP SCH (09:06)
[2017-03-16 11:25] LABS: ABG A-A DIFF O2 26.4 mmHg (10-20.0); ABG BASE EXCESS -0.2 mmol/L (-2.0-3.0); ABG HCO3 24.7 mmol/L (22.0-26.0); ABG OXYHEMOGLOBIN 95.2 % (94.0-100.0); ABG PCO2 35 mmHg (35-45); ABG PH 7.447 (7.350-7.450); TEMPERATURE, FAHRENHEIT, BG 98.5 FAHREN (96.0-98.6)
[2017-03-16 11:26] LABS: ALLEN TEST, BLOOD GAS Positive
[2017-03-16 11:38] LABS: GLUCOSE,POINT OF CARE 89 MG/DL (70-110)
[2017-03-16 11:42] VITALS: BP 111/84
[2017-03-16] MEDS ORDERED: POTASSIUM CHLORIDE 20 MEQ ER TABLET PO ONE (13:15)
[2017-03-16] MEDS ORDERED: LIB25 PO ×4 (15:30→15:41)
[2017-03-16] MEDS ORDERED: LACT30L PO (15:42)
[2017-03-16 15:44] VITALS: BP 133/58
== END 2017-03-16 18:15 | disposition home health service (06) | DRG 720 ==
LOC: EMS 15:49 → EDBD 15:49 → ICU 22:23 → 5S 03-13 23:00
PROVIDERS: ADMIT Hospitalist; ATTEND Hospitalist
PROC: 0BH17EZ Insertion of Endotracheal Airway into Trachea, Via Natural or Artificial Opening (ICD-10-PCS; principal; 2017-03-03)
PROC: 5A1955Z Respiratory Ventilation, Greater than 96 Consecutive Hours (ICD-10-PCS; 2017-03-03)
DX: A41.9 Sepsis, unspecified organism (principal); J96.00 Acute respiratory failure, unspecified whether with hypoxia or hypercapnia; N17.0 Acute kidney failure with tubular necrosis; J69.0 Pneumonitis due to inhalation of food and vomit; G92 Toxic encephalopathy; E87.0 Hyperosmolality and hypernatremia; E44.0 Moderate protein-calorie malnutrition; R31.9 Hematuria, unspecified; B17.9 Acute viral hepatitis, unspecified; E87.6 Hypokalemia; F10.10 Alcohol abuse, uncomplicated; F15.10 Other stimulant abuse, uncomplicated; F19.10 Other psychoactive substance abuse, uncomplicated; Z68.27 Body mass index [BMI] 27.0-27.9, adult; Z78.1 Physical restraint status
CPT/HCPCS: 31500; 70450; 76770; 80074; 82570; 82805; 82962; 83605; 83735; 84100; 84132; 84156; 84300; 84540; 87040; 87081; 92507; 92610; 93005; 94002; 94003; 96365; 96368; 97110; 97112; 97116; 97163; 97166; 97530; 97535; 99291; C9113; G0480; G0481; J0131; J0456; J1630; J1644; J2060; J2250; J2270; J2543; J2704; J2765; J3010; J3370; J3480; J3490; J7040; J7050; J7060